=== PATIENT | female | born 1980 | race Two or more races ===

== ENCOUNTER 2024-11-16 00:47 | Emergency (ER) | payer BC, SELFPAY ==
--- OUTSIDE RECORDS SUMMARY | 2024-03-31 03:01 | XMS_ITS | Continuity of Care Document ---
Author Organization [facility] Address [address] [address] [place] [address] Phone Care Team Providers Care Data Entry Technician Name Role Phone Vinnie Peck CRNA Unavailable [...] Diagnoses Date Provider Providers Copied on Encounter [facility] [place], [address] [address], [place], [id number], [place] [phone] [facility] No Information [employer] Vinnie. [address] [facility], [place], [id number] , [place]. [phone] Referring Provider: Daren Moses MD, [address] [facility] [address], [place], [address] . tel:[phone] [facility] [place], [address] [address], [place], [id number], [place] tel:[phone] [facility] GI Symptoms or Concerns (chief complaint) Screening ColonoscopyScreenin g ColonoscopyColorect al polyp detected on colonoscopyBenign neoplasm of cecumRectal polyp Josué Mercedes. [address] [facility], [place], [place], [id number] , [place]. tel:[phone] Referring Provider: Referral Self, USE FOR SELF REFERRALS. [facility], [address] [address], [place], [place], [id number], [place] tel:[phone] [facility] No Information El Rodriguez. [address] [facility], [place], [place], [id number] , [place]. tel:[phone] Family History Family Member Type Diagnosis Age [...] bi-directional interface ; Source: Other Registry Novel [id number], all formulations administered Note: [facility] bi-direct ional interface ; Source: Other Registry Influenza, split virus, trivalent, injectable, contains preservative administered Note: [facility] bi-direct ional interface ; Source: Other Registry tetanus toxoid, reduced diphtheria toxoid, and acellular pertussis vaccine, adsorbed administered Note: [facility] b i-directional interface ; Source: Other Registry Payers Payer name Insurance type Covered green party ID Authoriza tion(s) [facility] [place] [id number] Social History Type Description Quantity Date Captured [...]
--- NOTE | 2024-11-16 00:50 | ED.ALLEREA ---
HPI - Allergic Reaction General Time Seen by Provider: 00:50 Date Seen: 11/16/24 Chief complaint: Allergic Reaction Stated complaint: Allergic reaction Time Seen by Provider: 11/16/24 00:48 Source: patient Mode of arrival: ambulatory Limitations: no limitations History of Present Illness HPI narrative: 44-year-old female who presents today with concern for an allergic reaction. Patient has noted diffuse hives for the last 3 days, these are itchy. She has not taken any medication for this. She notes she was that state for with this started. She denies breathing problems, cough, abdominal pain, vomiting. Rogers like her legs lips were tingling in her throat was dry tonight which prompted her emergency department visit. Took 2 Benadryl about 1 hour prior to coming to the department. Related Data Previous Rx's ?Medication ?Instructions ?Recorded cetirizine 10 mg tablet (Zyrtec) 10 mg PO BID #14 tabs 11/16/24 prednisone 10 mg tablets in a dose See Rx Instructions PO .COMPLEX 11/16/24 pack #31 ea PFSH PFSH Social History Smoking Status: Never smoker Non-prescribed substance use: denies use Exam Narrative: Exam Narrative: General: Well-developed and well-nourished, no acute distress Head: Atraumatic and normocephalic Eyes: Pupils are equal reactive, extraocular motions intact, conjunctiva clear ENT: External nose and ears are normal, posterior pharynx without erythema or exudate Neck: No midline cervical tenderness, full spontaneous range of motion the neck, trachea midline, no adenopathy Heart: Regular rate and rhythm no murmurs or thrills Lungs: Clear to auscultation bilaterally without wheezes or crackles Abdomen: Soft, nontender, nondistended with active bowel sounds Musculoskeletal: No tenderness, deformity, or edema Neurologic: Awake, alert, and oriented x3, no gross focal neurologic deficits, cranial nerves intact as tested Psych: Mood and affect are appropriate Skin: Diffuse urticaria of the upper extremities and chest as well as lower extremity, also bilateral lower leg reticular rash Const: Vital Signs, click to edit/add: Vital Signs - 24 hr 11/16/24 00:57 Temperature 98.8 F Pulse Rate [Pulse Oximeter] 113 H Respiratory Rate 24 Blood Pressure [Ri ght Upper Arm] 155/84 H Pulse Oximetry 97 Oxygen Delivery Me thod Room Air Course Course ED Course: Reviewed most recent care visit from your 2014 which was for a general physical that time patient was continued on Synthroid for hypothyroidism. Patient presents today with hives which was going for 3 days. Tingling of the lips but no visible lip swelling, no voice changes, no breathing difficulty. On exam she is tachycardic otherwise finally stable, diffuse urticarial rash but also findings of livedo reticularis on the lower extremities. Labs are ordered along with epinephrine, prednisone. Patient already took Benadryl at home. Reevaluation(s) Time of Reevaluation #1: 01:54 Reevaluation #1: Labs independently interpreted by me with normal CBC, mildly elevated CRP, mildly elevated glucose, a normal basic panel otherwise. Symptoms improved and patient is stable for discharge. Discussed diagnosis of livedo reticularis and need for follow-up. Vital Signs Vital signs: Initial Vital Signs Temperature 98.8 F 11/16/24 00:57 Temperature Source Temporal Artery Scan 11/16/24 00:57 Pulse Rate 113 H 11/16/24 00:57 Respiratory Rate 24 11/16/24 00:57 Blood Pressure 155/84 H 11/16/24 00:57 Blood Pressure Mean 107 H 11/16/24 00:57 Blood Pressure Position Sitting 11/16/24 00:57 Pulse Oximetry 97 11/16/24 00:57 Oxygen Delivery Method Room Air 11/16/24 00:57 Vital Signs Temperature 98.8 F 11/16/24 00:57 Pulse Rate 113 H 11/16/24 00:57 Respiratory Rate 24 11/16/24 00:57 Blood Pressure 155/84 H 11/16/24 00:57 Pulse Oximetry 97 11/16/24 00:57 Oxygen Delivery Method Room Air 11/16/24 00:57 Temperature 98.8 F 11/16/24 00:57 Pulse Rate 113 H 11/16/24 00:57 Respiratory Rate 24 11/16/24 00:57 Blood Pressure 155/84 H 11/16/24 00:57 Pulse Oximetry 97 11/16/24 00:57 Oxygen Delivery Method Room Air 11/16/24 00:57 Medications Administered Medications: Discontinued Medications Generic Name Dose Route Start Last Admin Trade Name Freq PRN Reason Stop Dose Admin Prednisone 40 mg 11/16/24 01:07 11/16/24 01:22 Prednisone 20 Mg Tablet PO 11/16/24 01:08 40 mg ONCE ONE Administration MDM - Allergic Reaction Lab Data Labs: Lab Results 11/16/24 Range/Units 01:14 WBC 10.32 (4.50-11.00) K/uL RBC 4.29 (4.00-5.20) m/uL Hgb 11.1 L (12.0-16.0) gm/dL Hct 34.9 (33.0-51.0) % MCV 81 (80-100) fL MCH 26 (26-34) pg MCHC 32 (32-36) gm/dL RDW Coeff of Veto 14.9 (11.5-15.5) % Plt Count 275 (140-440) K/uL Neut % (Auto) 60.7 (42.0-72.0) % Lymph % (Auto) 30.0 (20-44) % [place] % (Auto) 7.9 (0.0-11.0) % Eos % (Auto) 0.3 (0.0-7.0) % Baso % (Auto) 0.1 (0.0-3.0) % Neut # (Auto) 6.26 (1.7-7.0) K/uL Lymph # (Auto) 3.10 H (0.90-2.90) K/uL [place] # (Auto) 0.80 (0.00-0.90) K/UL Eos # (Auto) 0.03 (0.00-0.50) K/uL Baso # (Auto) 0.01 (0.00-0.30) K/uL Abs Immat Gran (auto) 0.10 (0.00-0.30) K/uL Imm/Tot Granulo (auto) 1.0 % Sodium 134 L (135-149) mmol/L Potassium 3.6 (3.6-5.1) mmol/L Chloride 104 (96-114) mmol/L Carbon Dioxide 25 (20-32) mmol/L Anion Gap 5 L (7-15) mEq/L BUN 12 (5-24) mg/dL Creatinine 0.7 (0.5-1.5) mg/dL Estimated GFR 108 ml/min Glucose 166 H (60-115) mg/dL Calcium 8.9 (8.4-10.6) mg/dL C-Reactive Protein 2.0 H (0.5-1.0) mg/dL Discharge Plan Discharge Clinical Impression: Urticaria, Livedo reticularis Patient Disposition: Home, Self-Care Condition: Stable Instructions: Urticaria (ED) Additional Instructions: Take prednisone taper as prescribed starting the evening of November 16 Take Benadryl 50 mg every 6 hours for 24 hours, then as needed Take Zyrtec as prescribed Follow-up with your primary care provider for further evaluation and treatment Activity Level: Activity as Tolerated Discharge Diet: Regular Prescriptions: New cetirizine [Zyrtec] 10 mg tablet 10 mg PO BID Qty: 14 0RF prednisone 10 mg tablets,dose pack See Rx Instructions .ROUTE .COMPLEX Qty: 31 0RF Rx Instructions: 40 mg daily for 3 days, then 30 mg daily for 3 days, then 20 mg daily for 3 days, then 10 mg daily for 3 days, then 5 mg daily for 2 days Stand Alone Forms: Work/School Release, [place] Info Instructions
[2024-11-16 00:57] VITALS: BP 155/84; PULSE 113; RESP 24; TEMP 37.1; O2SAT 97
[2024-11-16 01:19] LABS: Hematocrit 34.9 % (33.0-51.0); Hemoglobin* 11.1 gm/dL (12.0-16.0); Immature Granulocytes Abs Auto 0.10 K/uL (0.00-0.30); Immature Granulocytes Pct Auto 1.0 %; Lymphocytes Absolute Auto 3.10 K/uL (0.90-2.90); Mean Corpuscular HGB Conc 32 gm/dL (32-36); Mean Corpuscular Hemoglobin 26 pg (26-34); Mean Corpuscular Volume 81 fL (80-100); RDW Coefficient of Variation % 14.9 % (11.5-15.5); Red Blood Count 4.29 m/uL (4.00-5.20); White Blood Count* 10.32 K/uL (4.50-11.00)
--- OUTSIDE RECORDS SUMMARY | 2024-11-16 01:23 | XMS_ITS | Clinical Summary ---
Author Organization [facility] Address [address] [place] [address] Care Team Providers Care Banana Ripening Room Supervisor Name Role Phone Keny Lucas PA-C Primary Care Provider [phone] Source Comments You are receiving this document as you are listed as the primary care provider,follow-up provider, or the patient has been referred to you for consultation.This is in compliance with the Medicare and[facility] EHR Incentive Program,which states Providers who transition their patient to another setting of careor provider of care or refers their patient to another provider of care shouldprovide summary care record for each transition of care or referral. Heyday Allergies Active Allergy Reactions Criticality Noted Date Comments Other 12/25/2007 PN: LW Other1: -NKA Review Contrast Media 12/25/2007 PN: LW CM1: >>> NO CONTRAST ADVERSE REACTION <<< Reaction : Medications amLODIPine (NORVASC) 10 MG tabletIndications :Primary hypertension (HRC) Take 1 Tablet (10 mg) by mouth daily. 90 Tablet 3 4 12/11/19 25 Active butalbital-acetam inophen-caffeine (FIORICET) 50-325-40 MG tabletIndications :Tension headache Take 1 Tablet by mouth every 4 hours as needed for Pain. 25 Tablet 4 Active famotidine (PEPCID) 20 MG tabletIndications :Gastroesophageal reflux disease, unspecified whether esophagitis present Take 1 Tablet (20 mg) by mouth daily at bedtime. 90 Tablet 3 4 Active hydrOXYzine pamoate (VISTARIL) 50 MG capsuleIndication s:Anxiety (HRC) Take 1 Capsule (50 mg) by mouth as needed. 40 Capsule 4 Active omeprazole (PRILOSEC) 20 MG capsuleIndication s:Gastroesophagea l reflux disease, unspecified whether esophagitis present Take 1 Capsule (20 mg) by mouth daily for 30 days. Take 1 hour before a meal. 30 Capsule 5 Active ondansetron (ZOFRAN) 4 MG tabletIndications :H. pylori infection Take 1 tablet (4 mg) by mouth three times a day as needed for nausea. 42 Tablet 5 Active omeprazole (PRILOSEC OTC) 20 MG enteric coated tabletIndications :Gastroesophageal reflux disease, unspecified whether esophagitis present Take 1 Tablet (20 mg) by mouth two times a day. 90 Tablet 3 5 Active lisinopril (ZESTRIL) 40 MG tabletIndications :Primary hypertension (HRC) Take 1 Tablet (40 mg) by mouth daily. 90 Tablet 3 5 09/03/19 26 Active Active Problems Problem Noted Date Diagnosed Date Anxiety disorder, unspecified 06/19/2024 Essential hypertension 06/06/2017 Screening for malignant neoplasm of cervix 04/17 Overview (11/10/2021): Per visit note dated 2016: Hx of abnormal paps: no 2016 NILM Positive for High Risk HPV types other than 16 or 18 2017 ASCUS , HPV negative [place]: ECC results were normal 08/2018 NILM, hpv negative 37 y.o. 2021 NILM HPV negative 41 y.o. PLAN, per ASCCP Guidelines: Cotest 10/2026 Chronic migraine without aur a without status migrainosus, not intractable 04/10/2016 Resolved Problems Problem Noted Date Diagnosed Date Resolved Date Elevated BP without diagnosis of hypertension 04/10/19 17 06/06/2017 Migraine without aura 01/08/20082016 Overview (11/08/2016): Migraine Common Hypothyroidism 09/04/2005 09/10/2020 Overview (11/08/2016): LW Onset: ; Hypothyroidism On Replacement Encounters Date Type Department Care Team Description 09/04/2024 Results Follow-Up [facility] [address] [place] [address] Kalli Ritchie CMA 09/02/2024 1:45 PM CDT Lab Visit Laboratory at [address] [address] Gastroesophageal reflux disease, unspecified whether esophagitis present 09/02/2024 1:35 PM CDT Office Visit [facility] [address] [place] [address] Keny Lucas PA-C Primary hypertension (HRC) (Primary Dx); Gastroesophageal reflux disease, unspecified whether esophagitis present; H. pylori infection from Last 3 Months Immunizations Immunization Administration Dates Next Due Flu Vac (3+ yrs) 12/25/2008 H1n1 Miv Sanofi 3+ Yr (Injected) 02/09/2009 HepB Adult (Heplisav-B, 19+ yrs, 2 dose series) 11/13/2022,10/24/2021 Influenza IIV4 (Quadrivalent) 0.5mL (18452) 09/2018,03/19/2017,12/24/2015 Influenza ccIIV3 6 months+ (Flucelvax) Moderna COVID-19 12+ 12/11/2023 Pfizer Monovalent 12+ Purple Top 04/29/2021,05/0 06/2020,06/29/2020 TDAP (BOOSTRIX) 04/28/2008 Td 04/18/1999 Td (7+ yrs) 05/23/2018 Td Adult, Unspecified Formulation 05/23/2018 Family History Medical History Relation Name Comments Diabetes, Type II Father Cancer, Breast Mother mom Diabetes, Type II Mother Hypertension Mother Cancer, Stomach Maternal Grandfather Cancer, Ovary Negative Family History Relation Name Status Comments Father Mother Alive Maternal Grandfather Social History Tobacco Use Types Packs/Day Years Used Date Smoking Tobacco: Never Smokeless Tobacco: Never Alcohol Use Standard Drinks/Week Comments No 0 (1 standard drink = 0.6 oz pure alcohol) Alcoholic Drinks/day: Freq:Never; PHQ-2 Answer Date Recorded PHQ-2 Score 1 06/19/2024 Comments No Sex and Gender Information Value Date Recorded Sex Assigned at Not on file Legal Sex Female 10:20 PM CDT Gender Identity Not on file Sexual Orientation Not on file Last Filed Vital Signs Vital Sign Reading Time Taken Comments Blood Pressure 155/91 09/02/2024 1:20 PM CDT Pulse 82 09/02/2024 1:12 PM CDT Temperature 36.8 C (98.2 F) 10/24/2021 3:43 PM CDT Respiratory Rate 16 09/02/2024 1:12 PM CDT Oxygen Saturation 99% 09/09/2020 2:54 PM CDT Inhaled Oxygen Concentration - - Weight 69.4 kg (153 lb) 12/11/2023 3:08 PM CDT Height 152.2 cm (4' 11.92) 10/24/2021 3:43 PM C DT Body Mass Index 29.96 10/24/2021 3:43 PM CDT Plan of Treatment Health Maintenance Due Date Last Done Comments Tuberculosis Screening 1980 Adult Preventive Visit 10/24/2022 , 09/06/2020, 09/11/2018, Additional history exists Influenza Vaccine (#1) 2024 , 05/23/2018, 03/19/2017, Additional history exists Mammogram 12/16/2024 12/17/2023, 11/18, 11/03/2021, Additional history exists Cervical Cancer Screening 10/25/20262021, 10/24/2021, 09/11/2018, Additional history exists DTaP/Tdap/Td Vaccine (4 - Tdap) 05/23/2028 05/23/2018, 05/23/2018, 04/28/2008, Additional history exists Zoster/Shingles Vaccine (1 of 2) 2028 Cholesterol 12/10/2028 12/11/2023, 10/18, 04/10/2016, Additional history exists Colonoscopy 03/31/2029 03/31/2024 HIV Screening (Preventive Services) Completed 12/15/2008, 10/16/2006 Hep C Screening (Preventive Services) Completed 11/13/2022 HepB Vaccine Completed 11/13/2022, 10/24/2021 COVID-19 Vaccine Completed 12/11/2023, 01/2022, 07/20/2020, Additional history exists HepA Vaccine Aged Out No longer eligi ble based on patient's age to complete this topic Hib Vaccine Aged Out No longer eligi ble based on patient's age to complete this topic IPV (Polio) Vaccine Aged Out No longe r eligible based on patient's age to complete this topic MCV4 Vaccine Aged Out No longer eligi ble based on patient's age to complete this topic Meningococcal B Vaccine Aged Out No l onger eligible based on patient's age to complete this topic Pneumococcal Vaccine Aged Out No long er eligible based on patient's age to complete this topic Procedures Procedure Name Priority Date/Time Associated Diagnosis Comments HELICOBACTER PYLORI BREATH TEST Routine 09/02/2024 1:49 PM CDT Gastroesophageal reflux disease, unspecified whether esophagitis present COLONOSCOPY S 03/31/2024 MM MAMMOGRAM SCREENING BILAT W 3D BRENDON W CAD Routine 12/17/2023 3:31 PM CDT LIPID PANEL & DIRECT LDL (IF NEEDED) Routine 12/11/2023 3:44 PM CDT Screening for lipid disorders HEPATITIS C ANTIBODY, WITH REFLEX (ANTI-HCV) Routine 11/13/2022 8:15 AM CDT Encounter for hepatitis C screening test for low risk patient HPV WITH 16 18 GENOTYPING, CERVICAL/ENDOCERVICA L Routine 10/25/2021 9:27 AM CDT Special screening examination for human papillomavirus (HPV) HIV ANTIBODY Routine 12/15/2008 3:05 PM CDT from Last 3 Months or Most Recently Relevant to Health Maintenance Results * Helicobacter pylori breath test (09/02/2024 1:49 PM CDT) H. pylori, Breath Test Negative Negative 09/03/2024 5:10 PM CDT [facility] Comment: INTERPRETIVE INFORMATION: Helicobacter pylori, Breath Test A negative result does not rule out the possibility of H. pylori infection. If clinical signs are suggestive of H. pylori infection, retest with a new specimen or an alternate method. Known causes of false-negative results include : 1. Ingestion of antimicrobials, proton pump inhibitors, and bismuth preparations during the preceding 2 weeks. Known causes of false-positive results include: 1. Patients with achlorhydria. 2. Rinsing the testing solution in the mouth or not using the straw provided in the kit, which can allow contact with urease-positive bacteria. 3. The presence of other gastric spiral organisms such as Helicobacter heilmannii. Note: The post-dose sample must be collected between 15 and 20 minutes post-dose to prevent a false-negative result. Performed By: [facility] [address] [place] [address] Louver Mortiser Operator: Luis Alberto Rosales MD, PhD CLIA Number: [id number] Other Specimen Type 09/02/2024 1:49 PM CDT 09/02/2024 1:49 PM CDT Keny Lucas PA-C LAB_1 Final Resul t [facility] [address] [place] [address] [place] [address] * COLONOSCOPY S (03/31/2024) Keny Lucas PA-C DUMMY/OTHER/AR Final Resul t * MM Mammogram Screening Bilat W 3D Brendon W CAD (12/17/2023 3:31 PM CDT) Anatomical Region Laterality Modality Breast Bilateral Mammography Impressions 12/18/2023 1:48 PM CDT : ACR BI-RADS Category 2: Benign RECOMMENDATION: Follow Up Imaging in 12 months - Bilateral The results and recommendations of this examination will be communicated to the patient. Narrative 12/18/2023 1:48 PM CDT MM MAMMOGRAM SCREENING BILAT W 3D BRENDON W CAD performed on 12/17/23 FDA Accredited Facility: [place] [address] Compared to: 12/14/2022 MM Mammogram Screening Bilat W 3D Brendon W CAD, 10/13/2020 MM Mammogram Screening Bilat W 3D Brendon W CAD, and 10/14/2019 MM Mammogram Screening Bilat W 3D Brendon W CAD FINDINGS: Bilateral screening mammogram was performed with the assistance of Computer-Aided Detection and breast tomosynthesis. The breasts are heterogeneously dense, which may obscure small masses. There are benign appearing circumscribed masses. There is no radiographic evidence of malignancy. us Gillian Lazo MD RAD PAYAL Final Res ult * (ABNORMAL) Lipid Panel and Direct LDL(If Needed) (12/11/2023 3:44 PM CDT) Cholesterol 201(H) 0 - 199 mg/dL 12/11/2023 7:17 PM CDT [facility] Triglyceride 229(H) <=149 mg/dL 12/11/2023 7:17 PM CDT [facility] HDL Cholesterol 47 >=40 mg/dL 12/11/2023 7:17 PM CDT [facility] LDL, Calculated 108 <130 mg/dL 12/11/2023 7:17 PM CDT [facility] Non HDL Chol, Calculated 154 <=159 mg/dL 12/11/2023 7:17 PM CDT [facility] Cholesterol/HDL Ratio 4.3 <=5.0 12/11/2023 7:17 PM CDT [facility] Hours Fasting 0.1 8 - 12 Hours 12/11/2023 7:17 PM CDT [facility] Blood Venipuncture / Unknown 12/11/2023 3:44 PM CDT 12/11/2023 3:44 PM CDT Keny Lucas PA-C LAB_1 Final Resul t [facility] [address] [place] [address], [facility] * Hepatitis C Antibody, with Reflex (11/13/2022 8:15 AM CDT) Hepatitis C Antibody Negative (Non Reactive) Negative (Non Reactive) 11/13/2022 12:07 PM CDT [facility] Comment:Antibodies to HCV no t detected. Does not exclude the possiblity of exposure to HCV. Blood Venipuncture / Unknown 11/13/2022 8:15 AM CDT 11/13/2022 8:15 AM CDT Keny Lucas PA-C LAB_1 Final Resul t [facility] [address] [phone] * HPV with 16 18 Genotyping (10/25/2021 9:27 AM CDT) [facility] HPV High Risk Type 16 PCR Not Detected Not detected 10/27/2021 5:37 AM CDT [facility] HPV High Risk Type 18 PCR Not Detected Not Detected 10/27/2021 5:37 AM CDT [facility] HPV High Risk Other Than 16/18 Not Detected Not detected 10/27/2021 5:37 AM CDT [facility] Cervical Broom ENTIRE ENDOCERVIX / Unknown 10/25/2021 9:27 AM CDT 10/25/2021 9:32 AM CDT [facility] - 10/27/2021 5:37 AM CDT The Hitesh HPV test is a qualitative in vitro test for the detection of Human Papillomavirus in [facility] patient specimens. The test utilizes amplification of target DNA by Polymerase Chain Reaction (PCR) and nucleic acid hybridization for the detection of 14 high-risk (HR) HPV types. The assay tests for high risk types (16, 18, 31, 33, 35, 39, 45, 51, 52, 56, 58, 59, 66, and 68). Gillian Lazo MD LAB_1 Final Res ult Performing Organization Address City/[facility]/ZIP Co de Phone Number [address] [address], [facility] [phone] * HIV ANTIBODY (12/15/2008 3:05 PM CDT) HIV 1/HIV 2 Non Reac Non Reac HP CONVERSION 12/15/2008 3:05 PM CDT us Flakita Khoury TECHNOLOGY SALES SPECIALIST, WATCH PARTS GRINDER LAB_1 Fi nal Result HP CONVERSION from Last 3 Months or Most Recently Relevant to Health Maintenance Insurance [facility] [employer] OOS [facility] Syn[employer]EM OOS * Guarantor: [place] Account Type Relation to Patient Date of Phone Billing Address Personal/Family Self 1980 [address] [place] [address] Care Teams Banana Ripening Room Supervisor Relationship Specialty Start Date End Date Keny Lucas PA-C [address] [place] [address] PCP - General Physician Pool Hall Inspector 09/02/24
--- OUTSIDE RECORDS SUMMARY | 2024-11-16 01:23 | XMS_ITS | Encounter Summary ---
Author Organization [facility] Address [address] [address] Care Team Providers Care Binding Folder Machine Name Role Phone Keny Lucas PA-C Primary Care Provider Encounter Details Date Type Department Care Team (Late st Contact Info) Description 09/04/2024 Results Follow-Up [facility] [address] [place] [phone] Kalli Ritchie, [facility] [address] [place], [place] [phone] Social History Tobacco Use Types Packs/Day Years [...] on file Sexual Orientation Not on file documented as of this encounter Plan of Treatment Not on file documented as of this encounter Visit Diagnoses Not on filedocumented in this encounter Care Teams Binding Folder Machine Relationship Specialty Start Date End Date Keny Lucas PA-C [address] [place], [place] [phone] PCP - General Physician Crew Leader Gluing 09/02/24 documented as of this encounter
[2024-11-16 01:34] LABS: Slide Review Reflex No
[2024-11-16 01:38] LABS: Chloride* 104 mmol/L (96-114); Potassium* 3.6 mmol/L (3.6-5.1); Sodium* 134 mmol/L (135-149)
[2024-11-16 01:42] LABS: Anion Gap 5 mEq/L (7-15); Blood Urea Nitrogen* 12 mg/dL (5-24); Calcium* 8.9 mg/dL (8.4-10.6); Carbon Dioxide* 25 mmol/L (20-32); Creatinine* 0.7 mg/dL (0.5-1.5); Estimated Glomerular Filt Rate 108 ml/min; Glucose* 166 mg/dL (60-115)
== END 2024-11-16 02:06 | disposition home or self-care (01) ==
PROVIDERS: Emergency Provider Family Medicine
DX: L50.9 Urticaria, unspecified (principal); T78.40XA Allergy, unspecified, initial encounter
CPT/HCPCS: 36415; 80048; 85025; 86140; 99283; 99284; J7512

== ENCOUNTER 2024-11-17 01:11 | Emergency (ER) | payer BC, SELFPAY ==
--- OUTSIDE RECORDS SUMMARY | 2024-03-31 03:01 | XMS_ITS | Continuity of Care Document ---
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 Name Role Phone Vinnie Peck CRNA Unavailable Unavailabl e Allergies, Adverse Reactions, Alerts Substance Reaction Status Criticality No Known Allergies Active No Inform ation Medications Medication Instructions Dosage Effective Dates (start - stop) Status Comments amlodipine 10 mg tablet take 1 tablet by oral route every day 10 MG - Active lisinopril 20 mg tablet take 1 tablet by oral route every day 20 MG - Active Procedures Procedure Date Colonoscopy Flex; W/remov Les- Colonoscopy Flex; W/bx 1/mx Level Iv-surg Path Gross/micro Advance Directives Directive Yes / No Effective Date File Name No Information Encounters Encounter Description Practice Location Reason(s) For Visit Diagnoses Date Provider Providers Copied on Encounter [facility] [place], [address] [address], [place], [id number], [place] tel:[phone] [facility] No Information [employer] [place] Vinnie. [address] [facility], [place], [id number] , [place]. [phone] Referring Provider: Daren Moses MD, [address] [facility] [address], [place], [address] . tel:[phone] [facility] [place], [address] [address], [place], [id number], [place] tel:[phone] [facility] GI Symptoms or Concerns (chief complaint) Screening ColonoscopyScreenin g ColonoscopyColorect al polyp detected on colonoscopyBenign neoplasm of cecumRectal polyp Josué Mercedes. [address] [facility], [place], [id number] , [place]. tel:[phone] Referring Provider: Referral Self, USE FOR SELF REFERRALS. [facility], [address] [address], [place], [id number], [place] tel:[phone] [facility] No Information El Rodriguez. [address] [facility], [place], [place], [id number] , [place]. tel:[phone] Family History Family Member Type Diagnosis Age At Onset Mother Problem (finding) Thyroid disorder Father Problem (finding) Thyroid disorder Mother Problem (finding) Cancer, breast Immunizations Vaccine Date Status Comments Influenza administered Note: [facility] bi-directional interface ; Source: Other Registry SARS-COV-2 (COVID-19) vaccin e, mRNA, spike protein, LNP, preservative free, 50 mcg/0.5 mL dose administered Note: [facility] bi-direct ional interface ; Source: Other Registry Hepatitis B vaccine (recombinant), CpG adjuvanted administered Note: [facility] bi-directional interface ; Source: Other Registry Hepatitis B vaccine (recombinant), CpG adjuvanted administered Note: [facility] bi-directional interface ; Source: Other Registry SARS-COV-2 (COVID-19) vaccin e, mRNA, spike protein, LNP, preservative free, 30 mcg/0.3mL dose administered Note: [facility] bi-direct ional interface ; Source: Other Registry SARS-COV-2 (COVID-19) vaccin e, mRNA, spike protein, LNP, preservative free, 30 mcg/0.3mL dose administered Note: [facility] bi-direct ional interface ; Source: Other Registry SARS-COV-2 (COVID-19) vaccin e, mRNA, spike protein, LNP, preservative free, 30 mcg/0.3mL dose administered Note: [facility] bi-direct ional interface ; Source: Other Registry Afluria Qd administered Note: [facility] bi-directional interface ; Source: Other Registry Afluria Qd administered Note: [facility] bi-directional interface ; Source: Other Registry Afluria Qd administered Note: [facility] bi-directional interface ; Source: Other Registry Novel [id number], all formulations administered Note: [facility] bi-direct ional interface ; Source: Other Registry Influenza, split virus, trivalent, injectable, contains preservative administered Note: [facility] bi-direct ional interface ; Source: Other Registry tetanus toxoid, reduced diphtheria toxoid, and acellular pertussis vaccine, adsorbed administered Note: [facility] b i-directional interface ; Source: Other Registry Payers Payer name Insurance type Covered constitution party ID Authoriza tion(s) [facility] [place] [id number] Social History Type Description Quantity Date Captured Comments Sex Female Smoking Status No Information Chief Complaint And Reason For Visit No Information Reason For Referral Reason For Referral No Information History Of Present Illness Encounter Date Complaint History Of Prese nt Illness GI Symptoms or Concerns Functional Status Date Functional Assessmen t No Information Instructions Date Instruction Additional Infor mation Colon Polyps Related to Scree anthony Colonoscopy Colon Cancer Prevention Related to Screening Colonoscopy Assessments Type Assessment Date No Information Patient Care Teams Name Effective Dates (start - stop) Status Members No Information
--- OUTSIDE RECORDS SUMMARY | 2024-03-31 03:01 | XMS_ITS | Continuity of Care Document ---
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 [address] [facility], [place], [id number] , [place]. [phone] Referring Provider: Daren Moses MD, [address] [facility] [address], [place], [address] . tel:[phone] [facility] [place], [address] [address], [place], [id number], [place] tel:[phone] [facility] GI Symptoms or Concerns (chief complaint) Screening ColonoscopyScreenin g ColonoscopyColorect al polyp detected on colonoscopyBenign neoplasm of cecumRectal polyp Josué Mercedes. [address] [facility], [place], [place], [id number] , [place]. tel:[phone] Referring Provider: Referral Self, USE FOR SELF REFERRALS. [facility], [address] [address], [place], [id number], [place] tel:[phone] [facility] No Information El Rodriguez. [address] [facility], [place], [place], [id number] , [place]. tel:[phone] Family History Family Member Type Diagnosis Age [...] bi-directional interface ; Source: Other Registry Novel [id number], all formulations administered Note: [facility] bi-direct ional interface ; Source: Other Registry Influenza, split virus, trivalent, injectable, contains preservative administered Note: [facility] bi-direct ional interface ; Source: Other Registry tetanus toxoid, reduced diphtheria toxoid, and acellular pertussis vaccine, adsorbed administered Note: [facility] b i-directional interface ; Source: Other Registry Payers Payer name Insurance type Covered constitution party ID Authoriza tion(s) [facility] [place] [id number] Social History Type Description Quantity Date Captured [...]
--- OUTSIDE RECORDS SUMMARY | 2024-11-17 01:14 | XMS_ITS | Encounter Summary ---
Author Organization [facility] Address [address], [place] [address] Care Team Providers Care Tank Hoop Bender Name Role Phone Keny Lucas PA-C Primary Care Provider Encounter Details Date Type Department Care Team (Late st Contact Info) Description 09/04/2024 Results Follow-Up [facility] [address] [place] [phone] Kalli Ritchie, [facility] [address] [place], [place] [phone] Social History Tobacco Use Types Packs/Day Years [...] on filedocumented in this encounter Care Teams Tank Hoop Bender Relationship Specialty Start Date End Date Keny Lucas PA-C [address] [place], [place] [phone] PCP - General Physician Funeral Home Associate 09/02/24 documented as of this encounter
--- OUTSIDE RECORDS SUMMARY | 2024-11-17 01:14 | XMS_ITS | Clinical Summary ---
Author Organization [facility] Address [address] [place] [address] Care Team Providers Care Relief Master Name Role Phone Keny Lucas PA-C Primary Care Provider [phone] Source Comments You are receiving this document as you are listed as the primary care provider,follow-up provider, or the patient has been referred to you for consultation.This is in compliance with the Medicare and[facility] EHR Incentive Program,which states Providers who transition their patient to another setting of careor provider of care or refers their patient to another provider of care shouldprovide summary care record for each transition of care or referral. Orgger Allergies Active Allergy Reactions Criticality Noted Date [...] or 18 2017 ASCUS , HPV negative [place]: ECC results were normal 08/2018 NILM, hpv [...] Department Care Team Description 09/04/2024 Results Follow-Up [facility] [address] [place] [address] Kalli Ritchie CMA 09/02/2024 1:45 PM CDT Lab Visit Laboratory at [address] [address] Gastroesophageal reflux disease, unspecified whether esophagitis present 09/02/2024 1:35 PM CDT Office Visit [facility] [address] [place] [address] Keny Lucas PA-C Primary hypertension (HRC) (Primary Dx); Gastroesophageal reflux disease, unspecified whether esophagitis present; H. pylori infection from Last 3 Months Immunizations Immunization Administration Dates Next Due Flu Vac (3+ yrs) 12/25/2008 H1n1 Miv Sanofi 3+ Yr (Injected) 02/09/2009 HepB Adult (Heplisav-B, 19+ yrs, 2 dose series) 11/13/2022,10/24/2021 Influenza IIV4 (Quadrivalent) 0.5mL (18584) 09/2018,03/19/2017,12/24/2015 Influenza ccIIV3 6 months+ (Flucelvax) Moderna [...] Test Negative Negative 09/03/2024 5:10 PM CDT [facility] Comment: INTERPRETIVE INFORMATION: Helicobacter pylori, Breath Test [...] to prevent a false-negative result. Performed By: [facility] [address] [place] [address] Hammer Setter: Luis Alberto Rosales MD, PhD CLIA Number: [id number] Other Specimen Type 09/02/2024 1:49 PM CDT 09/02/2024 1:49 PM CDT Keny Lucas PA-C LAB_1 Final Resul t [facility] [address] [place] [address] [place] [address] * COLONOSCOPY S (03/31/2024) Keny Lucas PA-C [...] CAD performed on 12/17/23 FDA Accredited Facility: [place] [address] Compared to: 12/14/2022 MM Mammogram [...] - 199 mg/dL 12/11/2023 7:17 PM CDT [facility] Triglyceride 229(H) <=149 mg/dL 12/11/2023 7:17 PM CDT [facility] HDL Cholesterol 47 >=40 mg/dL 12/11/2023 7:17 PM CDT [facility] LDL, Calculated 108 <130 mg/dL 12/11/2023 7:17 PM CDT [facility] Non HDL Chol, Calculated 154 <=159 mg/dL 12/11/2023 7:17 PM CDT [facility] Cholesterol/HDL Ratio 4.3 <=5.0 12/11/2023 7:17 PM CDT [facility] Hours Fasting 0.1 8 - 12 Hours 12/11/2023 7:17 PM CDT [facility] Blood Venipuncture / Unknown 12/11/2023 3:44 PM CDT 12/11/2023 3:44 PM CDT Keny Lucas PA-C LAB_1 Final Resul t [facility] [address] [place] [address], [facility] * Hepatitis C Antibody, with Reflex (11/13/2022 8:15 AM CDT) Hepatitis C Antibody Negative (Non Reactive) Negative (Non Reactive) 11/13/2022 12:07 PM CDT [facility] Comment:Antibodies to HCV no t detected. Does not exclude the possiblity of exposure to HCV. Blood Venipuncture / Unknown 11/13/2022 8:15 AM CDT 11/13/2022 8:15 AM CDT Keny Lucas PA-C LAB_1 Final Resul t [facility] [address] [phone] * HPV with 16 18 Genotyping (10/25/2021 9:27 AM CDT) [facility] HPV High Risk Type 16 PCR Not Detected Not detected 10/27/2021 5:[address] [facility] HPV High Risk Type 18 PCR Not Detected Not Detected 10/27/2021 5:[address] [facility] HPV High Risk Other Than 16/18 Not Detected Not detected 10/27/2021 5:[address] [facility] Cervical Broom ENTIRE ENDOCERVIX / Unknown 10/25/2021 9:27 AM CDT 10/25/2021 9:32 AM CDT [facility] - 10/27/2021 5:37 AM CDT The [facility]h [...] LAB_1 Final Res ult Performing Organization Address City/[facility]/ZIP Co de Phone Number [address] [address], [facility] [phone] * HIV ANTIBODY (12/15/2008 3:05 PM CDT) HIV 1/HIV 2 Non Reac Non Reac HP CONVERSION 12/15/2008 3:05 PM CDT us Flakita Khoury CREDIT OR LOANS OFFICER, MOBILE HOME PARK MANAGER LAB_1 Fi nal Result HP CONVERSION from Last 3 Months or Most Recently Relevant to Health Maintenance Insurance [facility] [employer] OOS [facility] Central Test[employer] OOS * Guarantor: [place] Account Type Relation to Patient Date of Phone Billing Address Personal/Family Self 1980 [address] [place] [address] Care Teams Relief Master Relationship Specialty Start Date End Date Keny Lucas PA-C [address] [place] [address] PCP - General Physician Staple Laster 09/02/24
[2024-11-17 01:17] VITALS: BP 179/99; RESP 20; TEMP 36.8; O2SAT 98; BMI 31.2
[2024-11-17] MEDS: FAMOTIDINE 20 MG TABLET PO (01:40)
--- NOTE | 2024-11-17 02:25 | ED.GENADULT ---
HPI - General Adult General Chief complaint: Allergic Reaction Stated complaint: allergic reaction/lips swollen Time Seen by Provider: 11/17/24 01:18 History of Present Illness HPI narrative: 44-year-old female presents to the emergency department for evaluation of worsening itching. She was evaluated 25 hours ago, notes are reviewed. She was diagnosed with you take area, started on prednisone. She was recommended to use an antihistamine, Benadryl and was prescribed prednisone. Unfortunately it is not available at her pharmacy. In the last few hours, she is notice the symptoms have started to return, miserable with itching and feels like her lips are starting to tingle. No tongue swelling, no difficulty swallowing, no difficulty breathing. She is feeling a little anxious. She does have a history of hypothyroidism in the past, not currently on Synthroid as her levels have been normal. Is taking Zyrtec. Tried some Benadryl prior to coming to the ED with no significant improvement. She was very encouraged at the initial response from the prednisone but is frustrated that her symptoms have rebounded in the interim. Did not try to transferring a prescription to a different pharmacy. The holiday will complicate her pharmacy getting a supply of medication or transferring the prescription. Past medical history is fairly benign per her report. Notes are reviewed from yesterday. No history of anaphylaxis. Remote hypothyroidism. No long-term medications, no allergies. ROS is notable for hives and itching, otherwise denies times 12 systems today. Related Data Previous Rx's ?Medication ?Instructions ?Recorded cetirizine 10 mg tablet (Zyrtec) 10 mg PO BID #14 tabs 11/16/24 prednisone 10 mg tablets in a dose See Rx Instructions PO .COMPLEX 11/16/24 pack #31 ea Allergies Allergy/AdvReac Type Severity Reaction Status Date / Time No Known Drug Allergies Allergy Verified 11/17/24 01:25 [facility] Social History Smoking Status: Never smoker Do you use any of these nicotine containing products: None Second hand tobacco smoke exposure: No How often do you have a drink containing alcohol: never AUDIT-C Alcohol total score: 0 Non-prescribed substance use: denies use service: No Exam Const: Vital Signs, click to edit/add: Vital Signs - 24 hr 11/17/24 01:17 Temperature 98.2 F Respiratory Rate 20 Blood Pressure [Ri ght Upper Arm] 179/99 H Pulse Oximetry 98 Oxygen Delivery Me thod Room Air Documenting provider has reviewed patient's vital signs: yes Common normals: no apparent distress Other: Anxious but redirectable. Appears well nourished and well hydrated HENMT: Common normals: normocephalic, moist oral mucous membranes and oropharynx normal Head and scalp: normocephalic Face and sinus: normal facial exam Other: Reports feeling of swollen lips but they do not appear visibly swollen. Dentition, tongue, posterior pharynx are all normal as well. There is no swelling of the face, no hives on the face or neck. Conjunctiva are normal as well Eye: Common normals: conjunctivae normal General eye: normal appearance of both eyes Conjunctiva: conjunctiva(e) normal Neck & C-Spine: General: normal visual inspection Resp: Common normals: normal respiratory effort, no use of accessory muscles and clear to auscultation bilaterally Effort & inspection: able to speak in complete sentences Auscultation: clear to auscultation bilaterally Cardio: Common normals: regular rate, regular rhythm, S1 normal heart sound, S2 normal heart sound and no murmurs Rate: regular rate Rhythm: regular rhythm Heart sounds: S1 normal and S2 normal GI: Common normals: Normal to inspection, nondistended, normoactive bowel sounds present, soft to palpation, non-tender and no hepatosplenomegaly Palpation: soft and no hepatosplenomegaly Psych: Common normals: speech normal Activity/motor behavior: appropriate eye contact Speech: normal speech Insight: insight good Judgement: judgment good Skin: Narrative: Mild hives and itching in the palms, flexor creases of the arm and left abdominal crease. No severe hives, open excoriation or petechiae. Course Course ED Course: 44-year-old female with hives without signs of anaphylaxis. Likely rebound symptoms with an adequate course of prednisone. Patient is worried about not being able to get the prednisone again today which would be [place] Day. I agree with her. She is willing to pay for the medications for InStent meds. I think this is her best bet. Will give 40 mg prednisone p.o. x1 now, 50 of hydroxyzine and 20 of famotidine. Patient will continue on an antihistamine like Claritin, Dolly or Zyrtec once daily for the next 3 weeks. She will do a 5 day course of prednisone 20 mg b.i.d. for 3 days, 10 mg b.i.d. for 2 days and then half of the pill until the 20 tablet course is gone. She is to follow up with primary care if not improving in 3 days. Consider re-evaluation of thyroid and suppressive levothyroxine for preventative treatment. Rationale discussed, written instructions were provided. Indications that would warrant ED visit were reviewed as well. She verbalizes understanding and agreement Vital Signs Vital signs: Initial Vital Signs Respiratory Effort Normal, Spontaneous, Non-Labored 11/17/24 01:15 Respiratory Depth Normal 11/17/24 01:15 Respiratory Pattern Normal 11/17/24 01:15 Vital Signs Temperature 98.2 F 11/17/24 01:17 Respiratory Rate 20 11/17/24 01:17 Blood Pressure 179/99 H 11/17/24 01:17 Pulse Oximetry 98 11/17/24 01:17 Oxygen Delivery Method Room Air 11/17/24 01:17 Temperature 98.2 F 11/17/24 01:17 Respiratory Rate 20 11/17/24 01:17 Blood Pressure 179/99 H 11/17/24 01:17 Pulse Oximetry 98 11/17/24 01:17 Oxygen Delivery Method Room Air 11/17/24 01:17 Medications Administered Medications: Discontinued Medications Generic Name Dose Route Start Last Admin Trade Name Freq PRN Reason Stop Dose Admin Famotidine 20 mg 11/17/24 01:34 11/17/24 01:40 Famotidine 20 Mg Tablet PO 11/17/24 01:35 20 mg ONCE ONE Administration Hydroxyzine Pamoate 50 mg 11/17/24 01:34 11/17/24 01:40 Hydroxyzine Pamoate 25 Mg Capsule PO 11/17/24 01:35 50 mg ONCE ONE Administration Prednisone 40 mg 11/17/24 01:34 11/17/24 01:40 Prednisone 20 Mg Tablet PO 11/17/24 01:35 40 mg ONCE ONE Administration Discharge Plan Discharge Clinical Impression: Urticaria Patient Disposition: Home w/ Parent or Adult Condition: Stable Instructions: Urticaria (ED) Additional Instructions: As we discussed, I do suspect that the itching and hives have rebounded 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 I have given you a dose here in the emergency room as well as a little bit of extra anti-itch medicine to hopefully start healing things again. Remember not to itch or heat to the affected areas. Cold showers can be temporarily soothing. I would like for you to continue on zyrtec daily for the next 3 weeks. You may continue Benadryl 25 mg up to every 6 hours as needed for itching. I would like for you to take another dose of prednisone at about 4:00 p.m. this afternoon. You will take 1 pill 2 times per day for 3 days. You will then decrease to half a pill 2 times per day for 2 days. You will then take the remaining medication half a pill once daily until gone. Consider making a follow-up appointment with her primary care doctor to discuss thyroid treatment again. Even if your thyroid levels are in range, having hypothyroidism does dramatically increase your risk of having more flare ups of this condition. Treatment with low-dose Synthroid can reduce flares if you get them often. It may be helpful for you to bring this paperwork with you when explaining your concerns. If you have severe shortness of breath, swelling inside the mouth or difficulty breathing, you should come to an emergency room. Activity Level: Activity as Tolerated Discharge Diet: Regular Prescriptions: No Action cetirizine [Zyrtec] 10 mg tablet 10 mg PO BID Qty: 14 0RF prednisone 10 mg tablets,dose pack See Rx Instructions .ROUTE .COMPLEX Qty: 31 0RF Rx Instructions: 40 mg daily for 3 days, then 30 mg daily for 3 days, then 20 mg daily for 3 days, then 10 mg daily for 3 days, then 5 mg daily for 2 days Follow Up/Referrals: Provider,Not a Local [Primary Care Provider, Family Practice] Stand Alone Forms: [employer] Info Instructions
== END 2024-11-17 02:06 | disposition home or self-care (01) ==
LOC: ED 01:39
PROVIDERS: Emergency Provider Family Medicine
DX: L50.9 Urticaria, unspecified (principal)
CPT/HCPCS: 99283; A9270; J7512

== ENCOUNTER 2024-12-26 04:34 | Emergency (ER) | payer BC, SELFPAY ==
[2024-12-26 04:40] VITALS: BP 181/84; PULSE 85; RESP 18; TEMP 36.7; O2SAT 99; BMI 33.0
[2024-12-26] MEDS: METHYLPREDNISOLONE SOD SUCC 62.5 MG/ML (125) 125 MG IVP (05:08)
[2024-12-26] MEDS: FAMOTIDINE 10 MG/ML inj 20 MG IVP (05:10)
--- NOTE | 2024-12-26 05:14 | ED.ALLEREA ---
HPI - Allergic Reaction General Date Seen: 12/26/24 Chief complaint: Allergic Reaction Stated complaint: allergic reaction Time Seen by Provider: 12/26/24 04:36 Source: patient Mode of arrival: ambulatory Limitations: no limitations History of Present Illness HPI narrative: Patient is a 44-year-old female who presents for the 3rd time in the past five weeks with lip and facial swelling. During the 1st two visits this was suspected to be related to strawberries. She received the usual treatment with antihistamines and steroids and has remained on Zyrtec. She has been told by her PCP that she should add back strawberries in small amounts to test whether not this is the source of her allergy. This evening she did have a little bit of strawberry banana smoothie and awoke during the night with lip swelling that did not respond a Zyrtec and Benadryl. She denies any chest pain or shortness of breath. Her tongue is not swollen. The swelling is limited to her upper lip and her cheeks. Interestingly her lisinopril dose was doubled right around the time that she had the 1st reaction five weeks ago. No one has mentioned to her that this is a very common cause of angioedema. It sounds as though she has the typical KANDICE-inhibitor cough as well. Related Data Home Medications ?Medication ?Instructions ?Recorded ?Confirmed amlodipine 10 mg tablet 10 mg PO DAILY 12/26/24 12/26/24 levonorgestrel-ethinyl estradiol 1 tab PO DAILY 12/26/24 12/26/24 0.1 mg-20 mcg tablet (Lessina) lisinopril 40 mg tablet 40 mg PO DAILY 12/26/24 12/26/24 Previous Rx's ?Medication ?Instructions ?Recorded cetirizine 10 mg tablet (Zyrtec) 10 mg PO BID #14 tabs 11/16/24 losartan 100 mg tablet 100 mg PO DAILY #30 tabs 12/26/24 prednisone 20 mg tablet See Rx Instructions .Route 12/26/24 .COMPLEX #14 tabs Allergies Allergy/AdvReac Type Severity Reaction Status Date / Time No Known Drug Allergies Allergy Verified 12/26/24 04:44 Review of Systems Narrative Review of systems is outlined above otherwise noted to be negative. [facility] Medical History (Updated 12/26/24 @ 05:06 by Kofi Murphy MD) Hypertension ?I10 - Essential (primary) hypertension (ICD-10) Social History Smoking Status: Never smoker Do you use any of these nicotine containing products: None Second hand tobacco smoke exposure: No How often do you have a drink containing alcohol: never AUDIT-C Alcohol total score: 0 Non-prescribed substance use: denies use service: No Exam Narrative: Exam Narrative: Vitals noted. HEENT: Conjunctiva clear. Tympanic membranes are pearly white bilaterally. Posterior pharynx is clear without erythema or exudate. Neck is supple without adenopathy, thyromegaly, carotid bruit. Lungs: Clear to auscultation in all boo. No wheezes, rales, rhonchi. No stridor. Heart: Regular rate and rhythm without murmur. Extremities: No cyanosis or edema. Good distal pulses. Skin: Her upper lip and cheeks are dramatically swollen. Her tongue is not swollen. No difficulty swallowing. Neurologic: Awake, alert, fully oriented. Neurologic exam is nonfocal. Const: Vital Signs, click to edit/add: Vital Signs - 24 hr 12/26/24 04:40 Temperature 98.0 F Pulse Rate [Right Pulse Oximeter] 85 Respiratory Rate 18 Blood Pressure [Ri ght Upper Arm] 181/84 H Pulse Oximetry 99 Oxygen Delivery Me thod Room Air Course Course ED Course: Patient seen and examined. IV is established. She is given Solu-Medrol 125 mg, famotidine 20 mg, and Benadryl 25 mg. Reevaluation(s) Reevaluation #1: Symptoms improve nicely with the above treatment. She will be switched from lisinopril to losartan 100 mg daily. We discussed reasons to return to the emergency department. Vital Signs Vital signs: Initial Vital Signs Temperature 98.0 F 12/26/24 04:40 Temperature Source Temporal Artery Scan 12/26/24 04:40 Pulse Rate 85 12/26/24 04:40 Respiratory Rate 18 12/26/24 04:40 Respiratory Effort Normal, Spontaneous, Non-Labored 12/26/24 04:40 Respiratory Depth Normal 12/26/24 04:40 Respiratory Pattern Normal 12/26/24 04:40 Blood Pressure 181/84 H 12/26/24 04:40 Blood Pressure Mean 116 H 12/26/24 04:40 Blood Pressure Position Sitting 12/26/24 04:40 Pulse Oximetry 99 12/26/24 04:40 Oxygen Delivery Method Room Air 12/26/24 04:40 Vital Signs Temperature 98.0 F 12/26/24 04:40 Pulse Rate 85 12/26/24 04:40 Respiratory Rate 18 12/26/24 04:40 Blood Pressure 181/84 H 12/26/24 04:40 Pulse Oximetry 99 12/26/24 04:40 Oxygen Delivery Method Room Air 12/26/24 04:40 Temperature 98.0 F 12/26/24 04:40 Pulse Rate 85 12/26/24 04:40 Respiratory Rate 18 12/26/24 04:40 Blood Pressure 181/84 H 12/26/24 04:40 Pulse Oximetry 99 12/26/24 04:40 Oxygen Delivery Method Room Air 12/26/24 04:40 Medications Administered Medications: Discontinued Medications Generic Name Dose Route Start Last Admin Trade Name Freq PRN Reason Stop Dose Admin Diphenhydramine HCl 25 mg 12/26/24 05:01 12/26/24 05:10 Diphenhydramine 50 Mg/Ml Inj IVP 12/26/24 05:02 25 mg ONCE ONE Administration Famotidine 20 mg 12/26/24 05:01 12/26/24 05:10 Famotidine 10 Mg/Ml Inj IVP 12/26/24 05:02 20 mg ONCE ONE Administration Methylprednisolone Sodium Succinate 125 mg 12/26/24 05:01 12/26/24 05:08 Methylprednisolone Sod Succ 62.5 Mg/Ml (125) IVP 12/26/24 05:02 125 mg ONCE ONE Administration Discharge Plan Discharge Clinical Impression: Angioedema Patient Disposition: Home, Self-Care Condition: Improved Instructions: Angioedema (ED) Additional Instructions: Stop lisinopril and start losartan 100 mg daily. Prednisone 40 mg daily x 4 days, 20 mg daily x 4 days, 10 mg daily x 4 days. Zyrtec 10 mg daily. Benadryl every 6 hours as needed. Follow up with your PCP in 7-10 days. Return to the ED for shortness or breath, tongue swelling, or difficulty swallowing. Prescriptions: New losartan 100 mg tablet 100 mg PO DAILY Qty: 30 0RF prednisone 20 mg tablet See Rx Instructions .ROUTE .COMPLEX Qty: 14 0RF Rx Instructions: 2 QD x 4 days then 1 QD x 4 days then 1/2 QD x days No Action levonorgestrel-ethinyl estrad [Lessina] 0.1-20 mg-mcg tablet 1 tab PO DAILY amlodipine 10 mg tablet 10 mg PO DAILY lisinopril 40 mg tablet 40 mg PO DAILY cetirizine [Zyrtec] 10 mg tablet 10 mg PO BID Qty: 14 0RF Follow Up/Referrals: Provider,Not a Local [Primary Care Provider, Family Practice] Stand Alone Forms: [employer] Info Instructions
[2024-12-26 05:15] VITALS: O2SAT 99
[2024-12-26 05:46] VITALS: BP 165/78; PULSE 80; RESP 18; TEMP 36.7; O2SAT 99
[2024-12-26 05:47] VITALS: BP 165/78; PULSE 80; RESP 18; TEMP 36.7
== END 2024-12-26 05:55 | disposition home or self-care (01) ==
LOC: ED 05:15
PROVIDERS: Emergency Provider Family Medicine
DX: T78.3XXA Angioneurotic edema, initial encounter (principal)
CPT/HCPCS: 94761; 99282; 99283; J1200; J1308; J2919